=== PATIENT | male | born 1935 | race Caucasian/White ===

== ENCOUNTER 2022-12-31 12:05 | Emergency (ER) | payer OTHER, SELFPAY ==
[2022-12-31 12:13] VITALS: BP 139/76; PULSE 94; RESP 18; TEMP 36.6; O2SAT 96
--- NOTE | 2022-12-31 12:23 | ED.SKABFB ---
HPI - Skin/Abscess/Foreign Bdy General Chief complaint: Skin/Abscess/Foreign Body Stated complaint: Lt Arm Swelling Time Seen by Provider: 12/31/22 12:15 Source: patient Mode of arrival: ambulatory Limitations: no limitations History of Present Illness HPI narrative: Mr. Alexander is an 87-year-old male patient presenting to the clinic today with complaints of left arm swelling x3 days. He reports on Sunday night or morning he injected himself with insulin and his left forearm instead of his deltoid and developed some swelling and mild discomfort. Reports that the swelling and redness is getting worse. Has swelling and redness extended from his left elbow to his left wrist. Denies any fever or chills. Denies any shortness of breath or chest pain. Related Data Home Medications Medication Instructions Recorded Confirmed atorvastatin 10 mg tablet 10 mg PO DAILY 12/29/21 09/01/22 Allergies Allergy/AdvReac Type Severity Reaction Status Date / Time No Known Allergies Allergy Verified 12/31/22 12:17 Review of Systems Review of Systems: Pertinent positives per HPI. Patient denies any fever, chills, rash, headache, visual changes, dizziness, cough, runny nose, sore throat, shortness of breath, chest pain, palpitations, nausea, vomiting, diarrhea, constipation, abdominal pain, or any urinary issues. [facility] Surgical History Surgical History History of coronary artery stent placement History of ureter stent Family History Family History Mother Heart disease Breast cancer Sibling Breast cancer Other Diabetes mellitus Social History Social History Smoking packs per day: 1 Smoking cigarettes per day: 20.0 Smoking status: Former smoker Tobacco type: cigarettes Second hand tobacco smoke exposure: No Smoking end date: 08/06/01 Alcohol intake: never Substance use: never Substance use type: does not use Living arrangements: with family Occupation/Education: retired Gender identity (if verbalized by the patient): Male Sexual Orientation (if Verbalized by the Patient): Straight or Heterosexual Spiritual care concerns: No Agree to blood products: Yes Comments At the time of my signature, I reviewed and agree with the nursing past medical, surgical, social, and family history. There is no relevant family history pertinent to the patient complaint. Exam Narrative: General: Well-developed, well nourished, in no apparent distress Head: Normocephalic, atraumatic. Cardio: Regular rate and rhythm, s1 and s2 normal, no murmur appreciated. Resp: Clear to auscultation bilaterally, no rhonchi, rales, wheezing or rubs. Integumentary: [place], warm, and dry, redness and swelling noted to the lateral aspect of the left forearm from the left elbow down to the left wrist with mild erythema. No pain to palpation of the left elbow or wrist. Peripheral pulses strong. Cap refills less than 2 seconds of the left hand. Course Course Emergency Course: Portions of this record may have been created with voice recognition software. Level of Care: Express Care Visit Vital Signs Vital signs: Vital Signs Temperature 36.6 C 12/31/22 12:13 Pulse Rate 94 12/31/22 12:13 Respiratory Rate 18 12/31/22 12:13 Blood Pressure 139/76 12/31/22 12:13 Pulse Oximetry 96 12/31/22 12:13 Oxygen Delivery Room Air 12/31/22 12:13 Temperature 36.6 C 12/31/22 12:13 Pulse Rate 94 12/31/22 12:13 Respiratory Rate 18 12/31/22 12:13 Blood Pressure 139/76 12/31/22 12:13 Pulse Oximetry 96 12/31/22 12:13 Oxygen Delivery Room Air 12/31/22 12:13 Vital signs reviewed MDM - Skin/Abscess/Foreign Bdy MDM Narrative Medical decision making narrative: At the time of visit patient is resting comf
== END 2022-12-31 12:30 | disposition home or self-care (01) ==
PROVIDERS: Emergency Provider Nurse Practitioner Family; PCP Family Medicine Adolescent Medicine
DX: L03.116 Cellulitis of left lower limb (principal); Z87.891 Personal history of nicotine dependence; Z95.5 Presence of coronary angioplasty implant and graft
CPT/HCPCS: 99213; G0463

== ENCOUNTER 2024-02-06 10:20 | Outpatient (CLI) | payer OTHER, SELFPAY ==
--- NOTE | 2024-02-06 11:30 | NEURO_ITS ---
Impression: # Diabetic of long duration complains of increasing numbness of right hand. # Right Carpal Tunnel Syndrome. # Right ulnar neuropathy across the elbow. # Needle/EMG exam not requested. Nerve Conduction Studies Anti Sensory Summary Table Stim Site NR Peak (ms) P-T Amp (?V) Site1 Site2 Delta-P (ms) Dist (cm) Brian (m/s) Right Median Anti Sensory (2-3nd Digit) Wrist 4.5 6.9 Wrist 2-3nd Digit 4.5 14.0 31 Wrist 4.8 8.3 Wrist 2-3nd Digit 4.5 14.0 31 Right Radial Anti Sensory (Base 1st Digit) Wrist 3.2 32.0 Wrist Base 1st Digit 3.2 0.0 Right Ulnar Anti Sensory (5th Digit) Wrist 3.3 22.1 Wrist 5th Digit 3.3 14.0 42 Motor Summary Table Stim Site NR Onset (ms) O-P Amp (mV) Site1 Site2 Delta-0 (ms) Dist (cm) Brian (m/s) Right Median Motor (Abd Poll Brev) Wrist 4.9 0.7 Elbow Wrist 6.1 33.0 54 Elbow 11.0 2.4 Right Ulnar Motor (Abd Dig Minimi) Wrist 2.8 3.7 A Elbow Wrist 7.0 32.0 46 A Elbow 9.8 2.8 B Elbow Wrist 4.2 22.0 52 B Elbow 7.0 2.9 F Wave Studies NR F-Lat (ms) L-R F-Lat (ms) Right Median (Mrkrs) (Abd Poll Brev) 33.41 Right Ulnar (Mrkrs) (Abd Dig Min) 34.02 MTDD
== END 2024-02-06 10:21 | disposition home or self-care (01) ==
LOC: ANHNEURO 10:20
PROVIDERS: PCP Family Medicine Adolescent Medicine; Visit Provider Nurse Practitioner Family
DX: R20.2 Paresthesia of skin (principal); G56.01 Carpal tunnel syndrome, right upper limb; G56.21 Lesion of ulnar nerve, right upper limb
CPT/HCPCS: 95909